=== PATIENT | female | born 1950 | race Caucasian/White ===

== ENCOUNTER 2017-04-26 17:12 | Emergency (ER) | payer MEDICARE ==
[~2017-04-26] VITALS: Ht 170.2 cm; Wt 136.1 kg
[2017-04-26 17:12] VITALS: BP_SYST 136
[~2017-04-26 17:12] MED LIST: BACL10TA PO; DULO20CA; PROC10TA PO
[2017-04-26] MEDS ORDERED: NACL 0.9% 1,000 ML IV ONE (17:23)
[2017-04-26 17:54] LABS: BASOPHILS # (AUTO) 0.1 K/uL (0.0-0.2); BASOPHILS % (AUTO) 0.6 % (0.0-2.0); EOSINOPHILS # (AUTO) 0.4 K/uL (0.0-0.4); HEMATOCRIT 38.4 % (36-48); HEMOGLOBIN 12.5 g/dL (12.0-16.0); LYMPHOCYTES # (AUTO) 3.2 K/uL (1.0-5.5); LYMPHOCYTES % (AUTO) 36.5 % (20.5-51.5); MEAN CORPUSCULAR HEMOGLOBIN 29 pg (27-31); MEAN CORPUSCULAR HGB CONC 33 % (32-36); MEAN CORPUSCULAR VOLUME 88 fL (79.0-98.0); MONOCYTES # (AUTO) 0.8 K/uL (0.0-1.0); NEUTROPHILS # (AUTO) 4.3 K/uL (1.8-7.7); NEUTROPHILS % (AUTO) 48.9 % (40.0-70.0); PLATELET COUNT (AUTO) 342 K/uL (130-430); RED BLOOD CELL COUNT(AUTO) 4.36 MIL/uL (4.2-6.2); RED CELL DISTRIBUTION WIDTH 15.8 % (9.0-15.0); WHITE BLOOD COUNT (AUTO) 8.8 K/uL (4.8-10.8)
[2017-04-26] MEDS ORDERED: FAMO20TA98 PO (17:54)
[2017-04-26] MEDS ORDERED: INSU100V7 SUBCUT (17:54)
[2017-04-26] MEDS ORDERED: WARF1TAB2 PO (17:54)
[2017-04-26] MEDS ORDERED: ALEN10TA6 PO (17:54)
[2017-04-26] MEDS ORDERED: TRIA15CR4 TP (17:54)
[2017-04-26] MEDS ORDERED: OXYB10TA4 PO (17:54)
[2017-04-26] MEDS ORDERED: COLL30OI2 TP (17:54)
[2017-04-26] MEDS ORDERED: OSCD500 PO (17:54)
[2017-04-26] MEDS ORDERED: DALF10TA PO (17:54)
[2017-04-26] MEDS ORDERED: CYAN100070 PO (17:54)
[2017-04-26] MEDS ORDERED: NYSTOP TP (17:54)
[2017-04-26] MEDS ORDERED: DIGO125T79 PO (17:54)
[2017-04-26] MEDS ORDERED: ACET-73 PO (17:54)
[2017-04-26] MEDS ORDERED: POLY17PO4 PO (17:54)
[2017-04-26] MEDS ORDERED: LOSA25TA3 PO (17:54)
[2017-04-26] MEDS ORDERED: ASCO500T20 PO (17:54)
[2017-04-26] MEDS ORDERED: METO-442 PO (17:54)
[2017-04-26] MEDS ORDERED: VENL50TA4 PO (17:54)
[2017-04-26] MEDS ORDERED: CYAN100067 PO (17:54)
[2017-04-26] MEDS ORDERED: SILV50CR TP (17:54)
[2017-04-26] MEDS ORDERED: LIP40 PO (17:54)
[2017-04-26] MEDS ORDERED: NPH,100V SUBCUT ×3 (17:54)
[2017-04-26] MEDS ORDERED: VITD400 PO (17:54)
[2017-04-26] MEDS ORDERED: METF-795 PO (17:54)
[2017-04-26] MEDS ORDERED: MULT PO (17:54)
[2017-04-26 17:59] LABS: CALCIUM 9.1 mg/dL (8.4-11.0); CREATININE 0.77 mg/dL (0.55-1.30)
[2017-04-26 18:09] LABS: TOTAL BILIRUBIN 0.2 mg/dL (0.0-1.0)
[2017-04-26 18:10] LABS: ALBUMIN 2.6 g/dL (3.4-4.8)
[2017-04-26 18:15] LABS: PROTHROMBIN TIME 40.1 SECS (9.5-12.5)
[2017-04-26 18:16] LABS: INR 3.9 (0.8-1.2)
[2017-04-26 18:17] LABS: BILIRUBIN,URINE NEGATIVE (NEGATIVE); BLOOD, URINE 3+ (NEGATIVE); CLARITY/URINE CLOUDY (CLEAR); COLOR,URINE RED (YELLOW); GLUCOSE,URINE NEGATIVE (NEGATIVE); KETONES,URINE TRACE (NEGATIVE); LEUKOCYTE ESTERASE ,URINE 3+ (NEGATIVE); NITRITE, URINE POSITIVE (NEGATIVE); PH,URINE 5.5 (5.0-8.0); PROTEIN URINE 2+ (NEGATIVE)
[2017-04-26 18:24] LABS: BACTERIA,URINE MANY /HPF (None Seen); RBC,URINE >100 /HPF (0-3); WBC,URINE 20-50 /HPF (0-3)
[2017-04-26] MEDS ORDERED: DIPHENHYDRAMINE INJ 50 MG/ML VIAL IVP ONE (18:30)
[2017-04-26] MEDS ORDERED: cefTRIAXone 2 GM VIAL ONE (18:32)
[2017-04-26 21:00] VITALS: BP_SYST 141
== END 2017-04-26 21:00 | disposition home or self-care (01) ==
LOC: SED 17:12
DX: N39.0 Urinary tract infection, site not specified (principal); R31.9 Hematuria, unspecified; E11.9 Type 2 diabetes mellitus without complications; I10 Essential (primary) hypertension; E78.00 Pure hypercholesterolemia, unspecified; Z88.0 Allergy status to penicillin; Z88.1 Allergy status to other antibiotic agents; Z86.79 Personal history of other diseases of the circulatory system; Z79.4 Long term (current) use of insulin; Z79.899 Other long term (current) drug therapy
CPT/HCPCS: 36415; 80053; 81000; 82150; 83690; 85025; 85610; 85730; 87086; 96365; 96375; 99284; J0696; J1200; J7030; 87186-TC; J7060

== ENCOUNTER 2017-06-01 00:16 | Emergency (ER) | payer MEDICARE ==
[~2017-06-01] VITALS: Ht 170.2 cm; Wt 90.7 kg
[2017-06-01 00:16] VITALS: BP_SYST 136
[~2017-06-01 00:16] MED LIST changes: +ACET-73 PO; +ALEN10TA6 PO; +ASCO500T20 PO; +COLL30OI2 TP; +CYAN100067 PO; +CYAN100070 PO; +DALF10TA PO; +DIGO125T79 PO; +FAMO20TA98 PO; +INSU100V7 SUBCUT; +LIP40 PO; +LOSA25TA3 PO; +METF-795 PO; +METO-442 PO; +MULT PO; +NPH,100V SUBCUT; +NYSTOP TP; +OSCD500 PO; +OXYB10TA4 PO; +POLY17PO4 PO; +SILV50CR TP; +TRIA15CR4 TP; +VENL50TA4 PO; +VITD400 PO; +WARF1TAB2 PO
[2017-06-01 05:18] VITALS: BP_SYST 135
== END 2017-06-01 05:18 | disposition home or self-care (01) ==
LOC: SED 00:16
DX: K64.4 Residual hemorrhoidal skin tags (principal); I10 Essential (primary) hypertension; E11.9 Type 2 diabetes mellitus without complications; E78.00 Pure hypercholesterolemia, unspecified; Z86.79 Personal history of other diseases of the circulatory system; Z79.4 Long term (current) use of insulin; Z79.899 Other long term (current) drug therapy; Z88.0 Allergy status to penicillin; Z88.1 Allergy status to other antibiotic agents
CPT/HCPCS: 99283